=== PATIENT | female | born 1980 | race Caucasian/White ===

== ENCOUNTER → 2019-09-03 11:08 | Outpatient (CLI) | payer BC, SELFPAY ==
--- NOTE | 2019-09-03 11:16 | XR_ITS ---
PROCEDURE: XR KNEE RT 4V CLINICAL INDICATION: knee pain COMPARISON: [id number] KNEE-3 VIEWS-RT from 09/01/2013 FINDINGS: No fracture or dislocation. No lytic or blastic change. There is normal mineralization. The joint spaces are well-preserved. No significant degenerative/arthritic changes. No erosive changes evident. Other findings:None. IMPRESSION: Negative right knee Dictated by: Tien Young MD 09/03/2019 13:51 Electronically signed by Tien Young MD in [place] 09/03/2019 13:51
[2019-09-03 12:01] LABS: Basophils # 0.1 K/mm3 (0-0.2); Basophils % 0.5 % (0.1-2.0); Eosinophils # 0.5 K/mm3 (0.0-0.4); Eosinophils % 4.5 % (0.1-12.0); Hematocrit 39.8 % (37.0-47.0); Lymphocytes # 3.4 K/mm3 (0.7-4.5); Mean Corpuscular HGB Conc 35.2 g/dL (31.8-35.4); Mean Corpuscular Hemoglobin 30.7 pg (27.0-31.2); Mean Corpuscular Volume 87.2 fl (81-99); Mean Platelet Volume 8.1 fl (7.4-10.4); Monocytes # 0.5 K/mm3 (0.1-1.0); Monocytes % 4.7 % (1.7-9.3); Neutrophils # 6.5 K/mm3 (1.8-7.8); Neutrophils % 59.3 % (37.0-80.0); Platelet Count 251 K/mm3 (142-424); Red Blood Count 4.56 M/mm3 (4.20-5.40); Red Cell Distribution Width 14.6 % (11.5-17.5)
[2019-09-03 12:49] LABS: Erythrocyte Sedimentation Rate 24 mm/hr (0-20)
[2019-09-03 13:01] LABS: Alanine Aminotransferase 37 U/L (12-78); Albumin Level 4.5 g/dl (3.5-5.0); Albumin/Globulin Ratio 1.6 (1.1-1.8); Alkaline Phosphatase 76 U/L (38-126); Anion Gap 14.2 mEq/L (5-15); Aspartate Amino Transferase 38 U/L (14-36); Bilirubin,Total 0.3 mg/dl (0.2-1.3); Blood Urea Nitrogen 10 mg/dl (7-17); Calcium 9.5 mg/dl (8.4-10.2); Carbon Dioxide 28 mmol/L (22.0-30.0); Chloride 102 mmol/L (98-107); Estimated Glomerular Filt Rate 94 ml/min (>60); GFR (African American) 114 ML/MIN (>60); Globulin 2.9 g/dL (1.3-3.2); Glucose 116 mg/dl (74-100); Potassium 4.2 mmoL/L (3.5-5.1); Sodium 140 mmol/L (136-145); Total Protein,Serum 7.4 g/dl (6.3-8.2)
[2019-09-03 13:09] LABS: C-Reactive Protein 6.7 mg/L (0-4)
[2019-09-04 12:13] LABS: Anti-Centromere B Antibodies <0.2 AI (0.0-0.9); Anti-Jo-1 <0.2 AI (0.0-0.9); Anti-Smith Antibody <0.2 AI (0.0-0.9); Antichromatin Antibodies <0.2 AI (0.0-0.9); Antiscleroderma-70 Antibodies <0.2 AI (0.0-0.9); RNP Antibodies 0.2 AI (0.0-0.9); Sjogren's Anti-SS-A <0.2 AI (0.0-0.9); Sjogren's Anti-SS-B <0.2 AI (0.0-0.9)
[2019-09-04 12:36] LABS: Anti-DNA (DS) Ab Qn <1 IU/mL (0-9)
[2019-09-04 15:37] LABS: RA Latex Turbid. <10.0 IU/mL (0.0-13.9)
[2019-09-05 12:10] LABS: PTT-LA 34.6 sec (0.0-51.9); dRVVT 41.7 sec (0.0-47.0)
[2019-09-05 13:24] LABS: Lupus Reflex Interpretation Comment: (.)
[2019-09-06 09:12] LABS: Anti-Cyclic Citrullinated Pept 7 units (0-19)
== END ==
PROVIDERS: PCP Emergency Medicine; Visit Provider Physician Assistant
DX: M25.561 Pain in right knee (principal); M32.9 Systemic lupus erythematosus, unspecified
CPT/HCPCS: 36415; 73564; 80053; 85025; 85613; 85651; 86140; 86200; 86225; 86235; 86431

== ENCOUNTER 2019-10-02 13:02 | Outpatient (RCR) | payer BC, SELFPAY ==
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
== END 2019-10-02 13:05 | disposition home or self-care (01) ==
LOC: PT 13:02
PROVIDERS: Visit Provider Physician Assistant
DX: M54.5 Low back pain (principal); G89.29 Other chronic pain
CPT/HCPCS: 97010; 97014; 97035; 97110; 97163; G0283

== ENCOUNTER → 2019-10-02 14:35 | Outpatient (CLI) | payer BC, SELFPAY ==
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
== END ==
PROVIDERS: PCP Emergency Medicine; Visit Provider Orthopaedic Surgery
DX: M25.561 Pain in right knee (principal)
CPT/HCPCS: 73721

== ENCOUNTER 2019-10-06 18:17 | Emergency (ER) | payer BC, SELFPAY ==
[2019-10-06 18:25] VITALS: BP 124/95; PULSE 89; RESP 16; TEMP 36.7; O2SAT 98; BMI 29.2
[2019-10-06 18:30] VITALS: BP 117/87; PULSE 98; RESP 18; O2SAT 98
[2019-10-06 19:00] VITALS: BP 121/76; PULSE 68; RESP 17; O2SAT 99
--- NOTE | 2019-10-06 19:07 | XR_ITS ---
PROCEDURE: XR CHEST PORTABLE CLINICAL HISTORY: cough Cough, wheezing, congestion COMPARISON: CXR CHEST(2 VIEWS-NOT PORTABLE) from 11/23/2012 FINDINGS: The cardiomediastinal silhouette and pulmonary vascularity are within normal limits. The lungs are clear without infiltrates, suspicious nodules, or pleural effusions. No acute bony abnormalities. IMPRESSION: No acute findings. Dictated by: Tien Young MD 10/07/2019 07:07 Electronically signed by Tien Young MD in [place] 10/07/2019 07:07
--- NOTE | 2019-10-06 19:14 | HMH.EDGENADL ---
ED Disposition Condition on Discharge: Fair - Critical Care Critical Care Time: No <Jama Gonzales - Last Filed: 10/06/19 20:29> <Jose Benedict - Last Filed: 10/06/19 22:14> Clinical Impression: Tobacco use Pneumonia Qualifiers: Pneumonia type: due to unspecified organism Laterality: unspecified laterality Lung location: unspecified part of lung Qualified Code(s): J18.9 - Pneumonia, unspecified organism Disposition: Home, Self-Care Instructions: DI for Acute Bronchitis Additional Instructions: fluids and see pcp for follow up Prescriptions: levoFLOXacin [Levaquin 500mg tab] 500 mg PO DAILY #7 tab Prescription Printed predniSONE [Prednisone 20mg Tab] 20 mg PO BID #10 tab Prescription Printed Referrals: Jose Benedict MD [Primary Care Provider] - Attestation: On 10/06/19, the high probability of a clinically significant, sudden or life threatening deterioration of the following system(s) required my full and direct attention, intervention and personal management. The time I documented below is in addition to time spent performing reported procedures but includes the following listed in this critical care notation. Medical Decision Making - Jason Inquiry Pt receiving controlled substance: No - Lab Data Result diagrams: 10/06/19 19:45 10/06/19 19:45 - Radiology Data #1 Image(s): Chest Image Reviewed: Yes I reviewed the patient's radiology image <Jama Gonzales - Last Filed: 10/06/19 20:29> - Medical Records Medical records reviewed: Yes: I reviewed the patient's medical records. - Lab Data Lab results reviewed: Yes: I reviewed the patient's lab results. Result diagrams: 10/06/19 19:45 10/06/19 19:45 <Jose Benedict - Last Filed: 10/06/19 22:14> Vital Signs: 10/06/19 18:25 10/06/19 18:30 10/06/19 19:00 Temperature 98.0 F Temperature Source Oral Pulse Rate [Right Brachial] 89 98 H 68 Respiratory Rate 16 18 17 Blood Pressure [Right Arm] 124/95 H 117/87 121/76 Blood Pressure Mean [Right Arm] 104 97 91 Blood Pressure Source [Right Arm] Automatic Cuff Automatic Cuff Automatic Cuff Blood Pressure Position [Right Arm] Sitting Supine Supine 02 Sat by Pulse Oximetry 98 98 99 Oxygen Delivery Method Room Air Room Air Room Air Oxygen Flow Rate (LPM) 10/06/19 19:30 Temperature Temperature Source Pulse Rate [Right Brachial] 52 L Respiratory Rate 17 Blood Pressure [Right Arm] 115/73 Blood Pressure Mean [Right Arm] 87 Blood Pressure Source [Right Arm] Automatic Cuff Blood Pressure Position [Right Arm] Supine 02 Sat by Pulse Oximetry 98 Oxygen Delivery Method Nasal Cannula Oxygen Flow Rate (LPM) 2 - Lab Data Lab Results 10/06/19 18:55: Influenza Type A Ag Negative, Influenza Type B Ag Negative 10/06/19 18:55: Chlamy pneumoniae PCR Not detected, Adenovirus (PCR) Not detected, B. pertussis DNA (PCR) Not detected, Coronavirus OC43 (PCR) Not detected, Coronavirus HKU1 (PCR) Not detected, Coronavirus 229E (PCR) Not detected, COVID-19 PCR Not detected, Coronavirus NL63 (PCR) Not detected, Human Metapneumovir PCR Not detected, Influenza A (H1) PCR Not detected, Influ A (H1N1/09) PCR Not detected, Influenza A (H3) PCR Not detected, Influenza Type A (PCR) Not detected, Influenza Type B (PCR) Not detected, M. pneumoniae (PCR) Not detected, Parainfluenza 1 (PCR) Not detected, Parainfluenza 2 (PCR) Not detected, Parainfluenza 3 (PCR) Not detected, Parainfluenza 4 (PCR) Not detected, RSV (PCR) Not detected, Entero/Rhino (PCR) Not detected 10/06/19 19:30: Group A Strep Rapid Negative 10/06/19 19:45: WBC 9.0, RBC 4.56, Hgb 14.2, Hct 40.2, MCV 88.1, MCH 31.2, MCHC 35.4, RDW 14.0, Plt Count 270, MPV 9.1, Neut % (Auto) 50.4, Lymph % (Auto) 42.0, [place] % (Auto) 4.7, Eos % (Auto) 2.3, Baso % (Auto) 0.5, Neut # (Auto) 4.5, Lymph # (Auto) 3.8, [place] # (Auto) 0.4, Eos # (Auto) 0.2, Baso # (Auto) 0.1 10/06/19 19:45: Sodium 143, Potassium 3.8, Chloride 106, Carbon Dioxide 26, Ani
[2019-10-06 19:30] VITALS: BP 115/73; PULSE 52; RESP 17; O2SAT 98
[2019-10-06 19:43] LABS: Adenovirus,PCR Not Detected (NotDetected); Bordetella Pertussis Not Detected (NotDetected); Chlamydophila Pneumoniae, PCR Not Detected (NotDetected); Coronavirus 19, PCR Not Detected (NotDetected); Coronavirus 229E Not Detected (NotDetected); Coronavirus NL63 Not Detected (NotDetected); Coronavirus OC43 Not Detected (NotDetected); Coronovirus HKU1,PCR Not Detected (NotDetected); Human Metapneumovirus Not Detected (NotDetected); Influenza A, PCR Not Detected (NotDetected); Influenza AH1, 2009 Not Detected (NotDetected); Influenza AH1, PCR Not Detected (NotDetected); Influenza AH3,PCR Not Detected (NotDetected); Influenza B, PCR Not Detected (NotDetected); Mycoplasma Pneumoniae, PCR Not Detected (NotDected); Parainfluenza 1, PCR Not Detected (NotDetected); Parainfluenza 2, PCR Not Detected (NotDetected); Parainfluenza 3, PCR Not Detected (NotDetected); Parainfluenza 4, PCR Not Detected (NotDetected); Respiratory Syncytial Virus Not Detected (NotDetected); Rhinovirus/Enterovirus Not Detected (NotDetected)
[2019-10-06 20:07] LABS: Basophils # 0.1 K/mm3 (0-0.2); Basophils % 0.5 % (0.1-2.0); Eosinophils # 0.2 K/mm3 (0.0-0.4); Eosinophils % 2.3 % (0.1-12.0); Hematocrit 40.2 % (37.0-47.0); Hemoglobin 14.2 g/dL (12.2-16.2); Lymphocytes # 3.8 K/mm3 (0.7-4.5); Mean Corpuscular HGB Conc 35.4 g/dL (31.8-35.4); Mean Corpuscular Hemoglobin 31.2 pg (27.0-31.2); Mean Corpuscular Volume 88.1 fl (81-99); Mean Platelet Volume 9.1 fl (7.4-10.4); Monocytes # 0.4 K/mm3 (0.1-1.0); Monocytes % 4.7 % (1.7-9.3); Neutrophils # 4.5 K/mm3 (1.8-7.8); Neutrophils % 50.4 % (37.0-80.0); Platelet Count 270 K/mm3 (142-424); Red Blood Count 4.56 M/mm3 (4.20-5.40)
[2019-10-06 20:13] LABS: Alanine Aminotransferase 22 U/L (12-78); Albumin Level 4.3 g/dl (3.5-5.0); Albumin/Globulin Ratio 1.4 (1.1-1.8); Alkaline Phosphatase 93 U/L (38-126); Anion Gap 14.8 mEq/L (5-15); Aspartate Amino Transferase 37 U/L (14-36); Bilirubin,Total 0.4 mg/dl (0.2-1.3); Blood Urea Nitrogen 7 mg/dl (7-17); Calcium 9.6 mg/dl (8.4-10.2); Carbon Dioxide 26 mmol/L (22.0-30.0); Chloride 106 mmol/L (98-107); Creatinine Clearance Estimated 147 mL/min (50-200); Estimated Glomerular Filt Rate 112 ml/min (>60); GFR (African American) 136 ML/MIN (>60); Globulin 3.1 g/dL (1.3-3.2); Glucose 90 mg/dl (74-100); Potassium 3.8 mmoL/L (3.5-5.1); Sodium 143 mmol/L (136-145); Total Protein,Serum 7.4 g/dl (6.3-8.2)
[2019-10-06 20:14] LABS: Lactic Acid 0.6 mmol/L (0.7-2.1)
[2019-10-06 20:16] LABS: Strep Scrn Group A (Rapid) Negative (Negative)
[2019-10-06 22:23] VITALS: BP 118/79; PULSE 66; RESP 14; TEMP 36.7; O2SAT 98
== END 2019-10-06 22:36 | disposition home or self-care (01) ==
PROVIDERS: Emergency Provider Emergency Medicine; PCP Emergency Medicine
DX: J18.9 Pneumonia, unspecified organism (principal); J44.9 Chronic obstructive pulmonary disease, unspecified; G43.709 Chronic migraine without aura, not intractable, without status migrainosus; F17.210 Nicotine dependence, cigarettes, uncomplicated
CPT/HCPCS: 71045; 80053; 83605; 85025; 87040; 87275; 87276; 87430; 87581; 87633; 87798; 96365; 96375; 99284; J1956

== ENCOUNTER → 2019-10-08 13:45 | Outpatient (CLI) | payer BC, SELFPAY ==
[2019-10-08 14:30] LABS: T4 (Thyroxine) 7.7 ug/dl (5.53-11.0)
[2019-10-08 14:44] LABS: Thyroid Stimulating Hormone 3.45 uIU/mL (0.465-4.68)
[2019-10-14 13:52] LABS: 1,25 Dihydroxy Vitamin D 58 pg/mL (.); 1,25-Dihydroxy, Vitamin D-2 <10 pg/mL (.); 1,25-Dihydroxy, Vitamin D-3 58 pg/mL (.)
== END ==
PROVIDERS: Visit Provider Emergency Medicine
DX: R53.83 Other fatigue (principal)
CPT/HCPCS: 82652; 84436; 84443

== ENCOUNTER 2019-11-26 19:45 | Observation (INO) | payer BC, SELFPAY ==
[2019-11-26] VITALS (12 sets, daily range): BP systolic 109–146; BP diastolic 69–109; PULSE 71–115; RESP 15–20; TEMP 36.5; O2SAT 93–99; BMI 28.9; BMI 28.5
--- NOTE | 2019-11-26 19:37 | ECG_ITS ---
APPROVED REPORT Exam: Resting ECG HR:104 bpm ECG Measurements Heart Rate 104 AXES TN 148 P 2 QRSd 66 QRS 1 QT 338 T 3 QTc 444 <Conclusion> Sinus tachycardia Cannot rule out Anterior infarct, age undetermined Abnormal ECG Electronically signed by : Wilberto Shin, 11/30/2019 06:40:36
--- NOTE | 2019-11-26 19:49 | XR_ITS ---
PROCEDURE: XR CHEST 2V CLINICAL HISTORY: chest pain COMPARISON: CR CXR CHEST(2 VIEWS-NOT PORTABLE) from 11/23/2012 CR XR CHEST PORTABLE from 10/06/2019 FINDINGS: The cardiomediastinal silhouette and pulmonary vascularity are within normal limits. The lungs are clear without infiltrates, suspicious nodules, or pleural effusions. No acute bony abnormalities. IMPRESSION: No acute findings. Dictated by: Dr. Antonio Medina MD 11/27/2019 09:00 Dr. Antonio Medina MD in [place] 11/27/2019 09:00
[2019-11-26 19:56] LABS: Chloride 106 mmol/L (98-107); Potassium 3.9 mmoL/L (3.5-5.1); Sodium 140 mmol/L (136-145)
[2019-11-26 19:58] LABS: Basophils # 0.1 K/mm3 (0-0.2); Basophils % 0.7 % (0.1-2.0); Eosinophils # 0.3 K/mm3 (0.0-0.4); Eosinophils % 3.2 % (0.1-12.0); Hematocrit 40.1 % (37.0-47.0); Hemoglobin 14.5 g/dL (12.2-16.2); Lymphocytes # 4.2 K/mm3 (0.7-4.5); Lymphocytes % 38.6 % (10-50); Mean Corpuscular HGB Conc 36.1 g/dL (31.8-35.4); Mean Corpuscular Hemoglobin 31.5 pg (27.0-31.2); Mean Corpuscular Volume 87.2 fl (81-99); Mean Platelet Volume 8.7 fl (7.4-10.4); Monocytes # 0.6 K/mm3 (0.1-1.0); Monocytes % 5.2 % (1.7-9.3); Neutrophils # 5.6 K/mm3 (1.8-7.8); Neutrophils % 52.3 % (37.0-80.0); Platelet Count 247 K/mm3 (142-424); White Blood Count 10.8 K/mm3 (4.8-10.8)
[2019-11-26 19:59] LABS: Anion Gap 13.9 mEq/L (5-15); Blood Urea Nitrogen 9 mg/dl (7-17); Calcium 9.7 mg/dl (8.4-10.2); Carbon Dioxide 24 mmol/L (22.0-30.0); Creatinine Clearance Estimated 145 mL/min (50-200); Estimated Glomerular Filt Rate 112 ml/min (>60); GFR (African American) 136 ML/MIN (>60); Glucose 115 mg/dl (74-100)
--- NOTE | 2019-11-26 20:05 | HMH.EDGENADL ---
ED Disposition Clinical Impression: Atypical chest pain, Family history of cardiomyopathy, History of cardiomyopathy, Tobacco use disorder Disposition: Admitted as Observation Condition on Discharge: Fair Referrals: Jose Benedict MD [Primary Care Provider] - Time of Disposition: 22:54 - Critical Care Critical Care Time: No Attestation: On 11/26/19, the high probability of a clinically significant, sudden or life threatening deterioration of the following system(s) required my full and direct attention, intervention and personal management. The time I documented below is in addition to time spent performing reported procedures but includes the following listed in this critical care notation. Medical Decision Making - Medical Records Medical records reviewed: Yes: I reviewed the patient's medical records. - Jason Inquiry Pt receiving controlled substance: No Vital Signs: 11/26/19 19:45 11/26/19 19:54 11/26/19 20:03 Temperature 97.7 F Temperature Source Oral Pulse Rate 115 H Pulse Rate [Right Brachial] 108 H 96 H Respiratory Rate 20 18 Blood Pressure [Right Arm] 146/109 H 126/90 Blood Pressure Mean [Right Arm] 121 102 Blood Pressure Source [Right Arm] Automatic Cuff Automatic Cuff Blood Pressure Position [Right Arm] Sitting Sitting 02 Sat by Pulse Oximetry 96 97 Oxygen Delivery Method Room Air Room Air Oxygen Flow Rate (LPM) 11/26/19 20:22 11/26/19 20:28 11/26/19 21:00 Temperature Temperature Source Pulse Rate Pulse Rate [Right Brachial] 98 H 92 H 98 H Respiratory Rate 18 18 Blood Pressure [Right Arm] 128/97 H 124/75 121/97 H Blood Pressure Mean [Right Arm] 107 91 105 Blood Pressure Source [Right Arm] Automatic Cuff Blood Pressure Position [Right Arm] Sitting 02 Sat by Pulse Oximetry 93 L 95 97 Oxygen Delivery Method Room Air Nasal Cannula Oxygen Flow Rate (LPM) 2 11/26/19 21:30 11/26/19 21:59 Temperature Temperature Source Pulse Rate Pulse Rate [Right Brachial] 84 83 Respiratory Rate 16 Blood Pressure [Right Arm] 120/69 116/82 Blood Pressure Mean [Right Arm] 86 93 Blood Pressure Source [Right Arm] Blood Pressure Position [Right Arm] 02 Sat by Pulse Oximetry 98 94 L Oxygen Delivery Method Room Air Nasal Cannula Oxygen Flow Rate (LPM) 2 - Lab Data Lab Results 11/26/19 19:40: WBC 10.8, RBC 4.60, Hgb 14.5, Hct 40.1, MCV 87.2, MCH 31.5 H, MCHC 36.1 H, RDW 14.0, Plt Count 247, MPV 8.7, Neut % (Auto) 52.3, Lymph % (Auto) 38.6, Hand % (Auto) 5.2, Eos % (Auto) 3.2, Baso % (Auto) 0.7, Neut # (Auto) 5.6, Lymph # (Auto) 4.2, Hand # (Auto) 0.6, Eos # (Auto) 0.3, Baso # (Auto) 0.1 11/26/19 19:40: Sodium 140, Potassium 3.9, Chloride 106, Carbon Dioxide 24, Anion Gap 13.9, BUN 9, Creatinine 0.60, Estimated Creat Clear 145, Estimated GFR 112, Est GFR ( Amer) 136, Glucose 115 H, Calcium 9.7, Troponin I < 0.01 11/26/19 19:40: D-Dimer 0.65 11/26/19 19:40: SARS-CoV-2 IgG Ab (Rapid) Negative, SARS-CoV-2 IgM Ab (Rapid) Negative 11/26/19 21:54: Troponin I < 0.01 Result diagrams: 11/26/19 19:40 11/26/19 19:40 Orders (Tests/Meds): ED MEDICATIONS Discontinued Medications Generic Name Dose Route Start Last Admin Trade Name Jigar PRN Reason Stop Dose Admin Aspirin 324 mg 11/26/19 19:50 11/26/19 20:03 Aspirin 81mg Chewable Tablet PO 11/26/19 19:51 324 mg ONCE ONE Administration Ioversol 70 ml 11/26/19 21:58 11/26/19 22:02 Rad-Optiray 350 100ml Vial IV 11/26/19 21:59 70 ml ONCE ONE Administration Protocol Ketorolac Tromethamine 15 mg 11/26/19 22:20 11/26/19 22:23 Toradol 30mg/Ml Vial IV 11/26/19 22:21 15 mg ONCE ONE Administration Nitroglycerin 0.4 mg 11/26/19 20:19 11/26/19 20:23 Nitrostat 0.4mg Sl Tablet SL 11/26/19 20:20 1 tab ONCE ONE Administration Sodium Chloride 40 ml 11/26/19 21:58 11/26/19 22:00 Rad-Ns 50ml Vial IV 11/26/19 21:59 40 ml ONCE ONE Administration Sodium Chlor
[2019-11-26 20:11] LABS: Troponin I < 0.01 ng/ml (0.00-0.034)
--- NOTE | 2019-11-26 20:23 | PC.NURSE ---
patient rang out stating she was having what felt like palpitations and stated she felt her heart skip, and the pain came back. pt also still c/o significant left shoulder blade pain, md notified, order for sublingual nitro given. pt given nitro at 2022
[2019-11-26 21:01] LABS: D-Dimer 0.65 ug/mL (0.15-8.0)
--- NOTE | 2019-11-26 21:11 | CT_ITS ---
PROCEDURE: CT ANGIO CHEST CLINCIAL INDICATION: chest pain, sharp intense Left-sided chest pain, left shoulder pain COMPARISON: No exams were available for comparison TECHNIQUE: IV Contrast: 70ML OPTIRAY 350 Axial images obtained with sagittal and coronal reformats. All CT scans at the facility use one or more dose reduction, viz: automated exposure control, ma/kV adjustment per patient size (including targeted exams where dose is matched to indication, i.e. head), or iterative reconstruction technique. FINDINGS: HEART AND MEDIASTINAL STRUCTURES: No mediastinal or hilar mass or adenopathy. No evidence of aortic aneurysm, aortic dissection, or pulmonary embolus. LUNGS AND PLEURAL SPACES: Small linear parenchymal opacities noted in the superior segment of the right lower lobe laterally may be due to an area of scarring or atelectasis. No lobar consolidation or collapse is evident. There are areas of mosaic attenuation. There is a small bleb in the right apex medially. There is mild bronchial thickening. There is a 5 mm noncalcified nodule along the right minor fissure anteriorly image 53 series 3 BONY STRUCTURES: No acute bony abnormalities apparent. UPPER ABDOMEN: Diffuse fatty liver infiltration ADDITIONAL FINDINGS: Bilateral submammary breast implants. There are scattered small bilateral axillary nodes. IMPRESSION: 1. No evidence of acute pulmonary embolus. 2. Mosaic attenuation of the lungs which may be seen with small airway disease. There is some mild bronchial thickening. COPD or asthma is a consideration. 3. 5 mm right upper lobe nodule nonspecific along the minor fissure and may be due to small node. Minimal atelectatic or fibrotic change in the right lower lobe. Dictated by: Tien Young MD 11/27/2019 06:51 Tien Young MD in [place] 11/27/2019 06:51
--- NOTE | 2019-11-26 21:12 | PC.NURSE ---
patient complaining again of palipations and chest pain. md notified, at bedside, md wants a repeat ekg and stated she wanted to order a CTA. pt updated on plan of care. md also stated to draw repeat troponin at the 2 hour eli.
[2019-11-26 21:14] LABS: Coronavirus 19 IgG Antibody Negative (Negative)
[2019-11-26 21:15] LABS: Coronavirus 19 IgM Antibody Negative (Negative)
--- NOTE | 2019-11-26 21:24 | PC.NURSE ---
notified radiology that md ordered at CTA
--- NOTE | 2019-11-26 21:35 | PC.NURSE ---
patient to ct at this time. reports she still has significant pain in her left shoulder, notified . states that she will give her something for pain after her CTA.
--- NOTE | 2019-11-26 21:45 | ECG_ITS ---
APPROVED REPORT Exam: Resting ECG HR:89 bpm ECG Measurements Heart Rate 89 AXES ND 160 P -2 QRSd 70 QRS 2 QT 384 T 16 QTc 467 <Conclusion> Normal sinus rhythm Normal ECG Electronically signed by : Wilberto Shin, 11/30/2019 06:40:23
--- NOTE | 2019-11-26 21:48 | PC.NURSE ---
patient back from radiology
--- NOTE | 2019-11-26 21:55 | PC.NURSE ---
2nd Troponin sent to lab, lab notified at this time.
[2019-11-26 22:26] LABS: Troponin I < 0.01 ng/ml (0.00-0.034)
--- NOTE | 2019-11-26 23:35 | PC.NURSE ---
3rd troponin sent to lab, lab notified
--- NOTE | 2019-11-26 23:35 | PC.NURSE ---
Dr Gonzalez speaking with Dr Finch at this time
--- NOTE | 2019-11-26 23:35 | PC.NURSE ---
Pt up to bathroom at this time
--- NOTE | 2019-11-26 23:45 | PC.NURSE ---
updated patient on plan of care. pt still c/o pain. md notified. nitropaste ordered.
[2019-11-27] VITALS (7 sets, daily range): BP systolic 105–122; BP diastolic 64–82; PULSE 60–103; RESP 15–18; TEMP 36.6–36.9; O2SAT 97–100; BMI 28.8; BMI 29.7
--- NOTE | 2019-11-27 | PC.NURSE ---
Report given to EVELIA Sanchez
[2019-11-27 00:01] LABS: Troponin I < 0.01 ng/ml (0.00-0.034)
--- NOTE | 2019-11-27 00:18 | PC.NURSE ---
PATIENT UP TO FLOOR VIA WHEELCHAIR.
--- NOTE | 2019-11-27 05:45 | PC.NURSE ---
Pt admitted this shift for chest pain radiating to left shoulder. Given medications as ordered. States pain is 8 on 1-10 scale, then asks when breaskfast is served. Was given several snacks this shift and also visited vending machine for better snacks. States she would like to speak with social work manager this am.
[2019-11-27 07:11] LABS: Basophils # 0.1 K/mm3 (0-0.2); Basophils % 0.7 % (0.1-2.0); Eosinophils # 0.4 K/mm3 (0.0-0.4); Eosinophils % 4.3 % (0.1-12.0); Hematocrit 37.4 % (37.0-47.0); Hemoglobin 13.2 g/dL (12.2-16.2); Lymphocytes # 4.1 K/mm3 (0.7-4.5); Lymphocytes % 48.1 % (10-50); Mean Corpuscular HGB Conc 35.2 g/dL (31.8-35.4); Mean Corpuscular Hemoglobin 31.8 pg (27.0-31.2); Mean Corpuscular Volume 90.3 fl (81-99); Mean Platelet Volume 8.7 fl (7.4-10.4); Monocytes # 0.5 K/mm3 (0.1-1.0); Monocytes % 5.2 % (1.7-9.3); Neutrophils # 3.6 K/mm3 (1.8-7.8); Neutrophils % 41.7 % (37.0-80.0); Platelet Count 234 K/mm3 (142-424); Red Blood Count 4.14 M/mm3 (4.20-5.40); White Blood Count 8.6 K/mm3 (4.8-10.8)
[2019-11-27 07:23] LABS: Chloride 106 mmol/L (98-107); Potassium 3.8 mmoL/L (3.5-5.1); Sodium 140 mmol/L (136-145)
[2019-11-27 07:26] LABS: Anion Gap 10.8 mEq/L (5-15); Blood Urea Nitrogen 7 mg/dl (7-17); Carbon Dioxide 27 mmol/L (22.0-30.0); Creatinine Clearance Estimated 127 mL/min (50-200); Estimated Glomerular Filt Rate 94 ml/min (>60); GFR (African American) 114 ML/MIN (>60); Phosphorous 5.5 mg/dl (2.5-4.5)
[2019-11-27 07:27] LABS: Calcium 8.9 mg/dl (8.4-10.2); Glucose 137 mg/dl (74-100)
--- NOTE | 2019-11-27 07:54 | HMH.PHAVTE ---
[facility] Pharmacy VTE Monitoring - Patient Demographics Admission date: 11/27/19 Report Date: 11/27/19 Time: 07:54 Allergies/Adverse Reactions: Patient Allergies cephalexin [From Keflex] Allergy (Severe, Verified 11/26/19 20:33) Anaphylaxis Height: 1.57 m Weight: 73.142 kg Patient Problems: Current Active Problems Atypical chest pain (Acute) Family history of cardiomyopathy (Acute) History of cardiomyopathy (Acute) Tobacco use disorder (Acute) - VTE Risk Labs: VTE Related Lab Results Hgb 13.2 g/dL (12.2-16.2) 11/27/19 06:40 Hct 37.4 % (37.0-47.0) 11/27/19 06:40 Plt Count 234 K/mm3 (142-424) 11/27/19 06:40 BUN 7 mg/dl (7-17) 11/27/19 06:40 Creatinine 0.70 mg/dl (0.52-1.04) 11/27/19 06:40 Estimated Creat Clear 127 mL/min (50-200) 11/27/19 06:40 Was VTE Risk Assessment Performed: Yes VTE Score: 5 VTE Risk Level: Low Risk Clinical Trial Participant: No - Prophylaxis VTE Prophylaxis Ordered?: Yes Types of VTE Prophylaxis: TEDS Knee High
--- NOTE | 2019-11-27 07:59 | HMH.PHAINT ---
HOME MEDICATION RECONCILIATION COMPLETED USING LIST FROM CLINIC PHARMACY AND PT INTERVIEW
--- NOTE | 2019-11-27 08:14 | HMH.HP ---
*Admission Date: 11/27/19 [facility] [place] History Medical History: Reports:: Anxiety, Cancer (colon), Chronic Obstructive Pulmonary Disease (COPD), Hypertension, Migraine, Seizures, Valvular Heart Disease (mitral valve prolapse) Denies:: Diabetes Mellitus Type 1, Diabetes Mellitus Type 2 *Have you ever received a pneumonia vaccine?: No *Have you received a flu vaccine this season?: No Other Medical History: Reports: Other (Lupus,Chrons) Laterality Cases: Right: Arthroscopy Knee, Bilateral: Other Other Surgeries: Yes: Colonoscopy, , Dilation and Curettage, Tubal Ligation, Other (breast augmentation) Amputation: No Fractures: Yes (RT shoulder,RT wrist and hand,fingers,ribs) - *Social History Last grade of school completed: High school graduate Smoking Status: Current every day smoker Tobacco Type: cigarettes # Packs/Day (cigarettes): 1 Alcohol Intake: never Substance Use Type: marijuana Last Used Substance: unknown *Occupational Status:: disabled Housing: apartment Household Members: family *Travel in the last 8 weeks: None - Psychiatric History Pschychiatric History:: Reports:: Anxiety Family Hx:: Cancer, Heart Attack, Hypertension, Kidney Disease, Mental illness Review of Systems - *Neurologic Denies dizziness, Denies headache(s), Denies numbness Meds Home Medications Medication Instructions Recorded Confirmed Type clonazepam 1 mg tablet 1 mg PO TID #90 tab 10/08/19 11/26/19 Rx oxycodone-acetaminophen 7.5 mg-325 1 tab PO TID #90 tab 10/08/19 11/26/19 Rx mg tablet clonidine HCl 0.2 mg tablet 0.2 mg PO BID 90 Days #180 tab 11/05/19 11/26/19 Rx spironolactone 25 mg tablet 25 mg PO DAILY #90 tab 11/05/19 11/26/19 Rx ARIPiprazole [Aripiprazole] 5 mg PO HS 11/26/19 11/27/19 History Gabapentin 600 mg PO TID 11/26/19 11/26/19 History Minocycline HCl [Minocycline HCl 100 mg PO DAILY 11/26/19 11/26/19 History 100mg Tab*] Prazosin HCl [Minipress] 2 mg PO HS 11/26/19 11/27/19 History Mirtazapine [Remeron] 15 mg PO HS PRN 11/27/19 11/27/19 History Allergies Allergy/AdvReac Type Severity Reaction Status Date / Time cephalexin [From Keflex] Allergy Severe Anaphylaxis Verified 11/26/19 20:33 Exam Vital signs and Labs for Last 24 Hours: Temp Pulse Resp BP Pulse Ox 98 F 87 18 111/67 100 11/27/19 08:00 11/27/19 08:00 11/27/19 08:00 11/27/19 08:00 11/27/19 08:00 Laboratory Results - last 24 hr 11/26/19 19:40: WBC 10.8, RBC 4.60, Hgb 14.5, Hct 40.1, MCV 87.2, MCH 31.5 H, MCHC 36.1 H, RDW 14.0, Plt Count 247, MPV 8.7, Neut % (Auto) 52.3, Lymph % (Auto) 38.6, [place] % (Auto) 5.2, Eos % (Auto) 3.2, Baso % (Auto) 0.7, Neut # (Auto) 5.6, Lymph # (Auto) 4.2, [place] # (Auto) 0.6, Eos # (Auto) 0.3, Baso # (Auto) 0.1 11/26/19 19:40: Sodium 140, Potassium 3.9, Chloride 106, Carbon Dioxide 24, Anion Gap 13.9, BUN 9, Creatinine 0.60, Estimated Creat Clear 145, Estimated GFR 112, Est GFR ( Amer) 136, Glucose 115 H, Calcium 9.7, Troponin I < 0.01 11/26/19 19:40: D-Dimer 0.65 11/26/19 19:40: SARS-CoV-2 IgG Ab (Rapid) Negative, SARS-CoV-2 IgM Ab (Rapid) Negative 11/26/19 21:54: Troponin I < 0.01 11/26/19 23:30: Troponin I < 0.01 11/27/19 06:40: WBC 8.6, RBC 4.14 L, Hgb 13.2, Hct 37.4, MCV 90.3, MCH 31.8 H, MCHC 35.2, RDW 14.0, Plt Count 234, MPV 8.7, Neut % (Auto) 41.7, Lymph % (Auto) 48.1, [place] % (Auto) 5.2, Eos % (Auto) 4.3, Baso % (Auto) 0.7, Neut # (Auto) 3.6, Lymph # (Auto) 4.1, [place] # (Auto) 0.5, Eos # (Auto) 0.4, Baso # (Auto) 0.1 11/27/19 06:40: Sodium 140, Potassium 3.8, Chloride 106, Carbon Dioxide 27, Anion Gap 10.8, BUN 7, Creatinine 0.70, Estimated Creat Clear 127, Estimated GFR 94, Est GFR ( Amer) 114, Glucose 137 H, Calcium 8.9, Phosphorus 5.5 H, Magnesium 2.0 I & O for Last 24 hours: Intake & Output 11/24/19 11/25/19 11/26/19 11/27/19 23:59 23:59 23:59 23:59 Intake Total 360 / 360 Balance 360 / 360 Weight 156 lb 6.405 oz 161 lb 4 oz
--- NOTE | 2019-11-27 08:30 | CA_ITS ---
APPROVED REPORT EXAM: Comprehensive 2D, Doppler, and color-flow Echocardiogram Criminal Justice Social Worker: Aleksandra Collier CRT Ht: 5 ft 1 in Wt: 161lbs BSA: 1.72 BP: 111/67 mmHg Indications: Chest Pain, COPD, Hypertension/HDD, smoker, Breast Implants 2D Dimensions LVOT 1.90 cm (M/F) 1.5-2.5 M-Mode Dimensions RVDd 2.09 cm (0.9-2.6) LVDd 4.19 cm (3.5-5.7) LVDs 2.97 cm (3.5-5.7) IVSd 1.95 cm (0.6-1.1) PWd 0.70 cm (0.6-1.1) EF (Teich) 56.20% FS 29.10% EDV (Teich) 78.10 mL ESV (Teich) 34.20 mL LV Diastology E/A Ratio 1.31 Mitral Valve MV A Velocity 65.00 (40-130 cm/s) Left Ventricle Left atrium is normal size, left ventricle is normal size, there is no concentric left ventricular hypertrophy, visually estimated ejection 55% with no regional wall motion abnormality, diastolic parameters are within normal range. Fraction 55% with no regional wall motion abnormality, Right Ventricle Right atrium right ventricular normal size and contractility. Aortic Valve Aortic valve is grossly normal, there is no aortic stenosis or aortic insufficiency. Mitral Valve Mitral valve is grossly normal, there is mild mitral regurgitation. Tricuspid Valve Tricuspid valve is grossly normal, there is mild tricuspid regurgitation, calculated right ventricular systolic pressure within normal range. Pulmonic Valve Pulmonic valve is poorly visualized. Great Vessels Aortic root is normal size. Pericardium No significant pericardial effusion noted. Conclusion 1. Normal left ventricular size, preserved left ventricular systolic function, visually estimated ejection fraction 55% with no regional wall motion abnormality, diastolic parameters are within normal range. 2. Mild mitral and tricuspid regurgitation, calculated right ventricular systolic pressure is within normal range. 3. No significant pericardial effusion noted. Electronically signed by : Alan Jacobs, 11/27/2019 21:04:41
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
--- NOTE | 2019-11-27 15:03 | PC.NURSE ---
Pt d/cd from floor at 1452.
--- NOTE | 2019-11-27 17:52 | HMH.HPDC ---
General - General Admission date:: 11/27/19 Discharge date: 11/27/19 *Admission Date: 11/27/19 *Chief complaint: Chest Pain *History of present illness: 39-year-old female patient presents to the emergency room with reports of left scapular pain, she describes as an ice pick to her back with radiation through to her chest. She reports this started at home she took 1 nitroglycerin with what she believed was some relief of symptoms but did not completely alleviate all of them. She reports she does have a history of mitral valve prolapse which was diagnosed when she was , she delivered and she was never followed up with cardiology afterwards due to moving to [place] and child was premature complications. She also reports she has a strong family history of CAD and was worried and came to the ED for further evaluation. In the ER there were no ST changes in her EKG, troponins were negative x3, CTA of the chest was negative for pulmonary embolism. CBC and BMP were unremarkable as well. Chest x-ray showed no acute findings. While in the emergency room patient reported decreased chest/back pain and was transported to floor. [facility] History Medical History: Reports:: Anxiety, Cancer (colon), Chronic Obstructive Pulmonary Disease (COPD), Hypertension, Migraine, Seizures, Valvular Heart Disease (mitral valve prolapse) Denies:: Diabetes Mellitus Type 1, Diabetes Mellitus Type 2 *Have you ever received a pneumonia vaccine?: No *Have you received a flu vaccine this season?: No Other Medical History: Reports: Other (Lupus,Chrons) Laterality Cases: Right: Arthroscopy Knee, Bilateral: Other Other Surgeries: Yes: Colonoscopy, , Dilation and Curettage, Tubal Ligation, Other (breast augmentation) Amputation: No Fractures: Yes (RT shoulder,RT wrist and hand,fingers,ribs) - *Social History Last grade of school completed: High school graduate Smoking Status: Current every day smoker Tobacco Type: cigarettes # Packs/Day (cigarettes): 1 Alcohol Intake: never Substance Use Type: marijuana Last Used Substance: unknown *Occupational Status:: disabled Housing: apartment Household Members: family *Travel in the last 8 weeks: None - Psychiatric History Pschychiatric History:: Reports:: Anxiety Family Hx:: Cancer, Heart Attack, Hypertension, Kidney Disease, Mental illness Review of Systems - Review of Systems Review of systems:: pertinent systems reviewed and negative unless documented below - Constitutional Reports fatigue, Reports lack of energy, Denies fever(s) - Eyes Denies change in vision, Denies double vision - ENT Denies dizziness, Denies difficulty swallowing - *Cardiovascular Reports chest pain, Reports chest pain at rest, Reports shortness of breath, Reports fast heart rate, Denies excessive sweating - *Respiratory Reports shortness of breath, Denies excessive phlegm production - *Gastrointestinal Denies abdominal pain, Denies change in bowel habits, Denies difficulty swallowing - *Musculoskeletal Denies joint pain, Denies neck pain - Integumentary/Breasts Denies hair loss, Denies change in skin color - *Neurologic Denies dizziness, Denies headache(s), Denies numbness - Psychiatric Denies behavioral changes, Denies hopelessness - Endocrine Denies cold intolerance, Denies heat intolerance - Hematologic/Lymphatic Denies easy bleeding, Denies easy bruising - Allergic/Immunologic Denies GI upset with certain foods, Denies tongue swelling Exam Vital signs and Labs for Last 24 Hours: Temp Pulse Resp BP Pulse Ox 98.5 F 90 17 107/73 L 100 11/27/19 11:25 11/27/19 12:00 11/27/19 11:25 11/27/19 11:25 11/27/19 11:25 Laboratory Results - last 24 hr 11/26/19 19:40: WBC 10.8, RBC 4.60, Hgb 14.5, Hct 40.1, MCV 87.2, MCH 31.5 H, MCHC 36.1 H, RDW 14.0, Plt Count 247, MPV 8.7, Neut % (Auto) 52.3, Lymph % (Auto) 38.6, Saline % (Auto) 5.2, Eos % (Auto) 3.2, Baso % (Auto) 0.7, Neut # (
== END 2019-11-27 14:50 | disposition home or self-care (01) ==
LOC: ER 22:54 → 2ND 11-27 00:48
PROVIDERS: Emergency Medicine; Admitting Provider Family Medicine; Emergency Provider Emergency Medicine; PCP Emergency Medicine; Visit Provider Family Medicine
DX: R07.9 Chest pain, unspecified (principal); J44.9 Chronic obstructive pulmonary disease, unspecified; I10 Essential (primary) hypertension; Z72.0 Tobacco use; M54.16 Radiculopathy, lumbar region; G40.909 Epilepsy, unspecified, not intractable, without status epilepticus; Z79.899 Other long term (current) drug therapy; Z88.1 Allergy status to other antibiotic agents
CPT/HCPCS: 36415; 71046; 71275; 80048; 83735; 84100; 84484; 85025; 85378; 86328; 93005; 93306; 96374; 99285; G0378; Q9967

== ENCOUNTER 2019-12-21 19:39 | Emergency (ER) | payer BC, SELFPAY ==
[2019-12-21] VITALS (8 sets, daily range): BP systolic 103–138; BP diastolic 71–96; PULSE 78–119; RESP 16–17; TEMP 36.8–37.4; O2SAT 95–99; BMI 29.2
--- NOTE | 2019-12-21 19:35 | ECG_ITS ---
APPROVED REPORT Exam: Resting ECG HR:111 bpm ECG Measurements Heart Rate 111 AXES WI 142 P 68 QRSd 74 QRS 43 QT 318 T 31 QTc 432 <Conclusion> Sinus tachycardia Otherwise normal ECG Electronically signed by : Wilberto Shin, 12/22/2019 06:23:56
--- NOTE | 2019-12-21 19:47 | XR_ITS ---
PROCEDURE: XR CHEST 2V CLINICAL HISTORY: chest pain COMPARISON: CR CXR CHEST(2 VIEWS-NOT PORTABLE) from 11/23/2012 CR XR CHEST PORTABLE from 10/06/[address] ANGIO CHEST from 11/26/2019 CR XR CHEST 2V from 11/26/2019 FINDINGS: The cardiomediastinal silhouette and pulmonary vascularity are within normal limits. The lungs are clear without infiltrates, suspicious nodules, or pleural effusions. No acute bony abnormalities. Status post bilateral breast implants IMPRESSION: No acute findings. Dictated by: Tien Young MD 12/22/2019 06:07 Tien Young MD in [place] 12/22/2019 06:07
[2019-12-21 19:53] LABS: Basophils # 0.1 K/mm3 (0-0.2); Basophils % 0.7 % (0.1-2.0); Eosinophils # 0.4 K/mm3 (0.0-0.4); Hematocrit 39.9 % (37.0-47.0); Hemoglobin 14.2 g/dL (12.2-16.2); Lymphocytes % 32.9 % (10-50); Mean Corpuscular HGB Conc 35.7 g/dL (31.8-35.4); Mean Corpuscular Hemoglobin 32.1 pg (27.0-31.2); Mean Corpuscular Volume 89.9 fl (81-99); Mean Platelet Volume 8.8 fl (7.4-10.4); Monocytes # 0.7 K/mm3 (0.1-1.0); Monocytes % 5.9 % (1.7-9.3); Neutrophils # 6.9 K/mm3 (1.8-7.8); Neutrophils % 57.5 % (37.0-80.0); Platelet Count 269 K/mm3 (142-424); Red Blood Count 4.43 M/mm3 (4.20-5.40); Red Cell Distribution Width 13.7 % (11.5-17.5); White Blood Count 12.1 K/mm3 (4.8-10.8)
[2019-12-21 19:58] LABS: Anion Gap 13.1 mEq/L (5-15); Blood Urea Nitrogen 11 mg/dl (7-17); Calcium 9.6 mg/dl (8.4-10.2); Carbon Dioxide 25 mmol/L (22.0-30.0); Chloride 104 mmol/L (98-107); Creatinine Clearance Estimated 147 mL/min (50-200); Estimated Glomerular Filt Rate 112 ml/min (>60); GFR (African American) 136 ML/MIN (>60); Glucose 117 mg/dl (74-100); Potassium 4.1 mmoL/L (3.5-5.1); Sodium 138 mmol/L (136-145)
--- NOTE | 2019-12-21 20:01 | PC.NURSE ---
PT gone to xray
--- NOTE | 2019-12-21 20:02 | PC.NURSE ---
Patient to radiology at this time
--- NOTE | 2019-12-21 20:04 | PC.NURSE ---
patient back from radiology at this time
--- NOTE | 2019-12-21 20:06 | HMH.EDGENADL ---
ED Disposition Clinical Impression: Chest pain Qualifiers: Chest pain type: unspecified Qualified Code(s): R07.9 - Chest pain, unspecified Disposition: Home, Self-Care Condition on Discharge: Good Instructions: DI for Chest Pain Referrals: Jose Benedict MD [Primary Care Provider] - - Critical Care Critical Care Time: No Attestation: On 12/21/19, the high probability of a clinically significant, sudden or life threatening deterioration of the following system(s) required my full and direct attention, intervention and personal management. The time I documented below is in addition to time spent performing reported procedures but includes the following listed in this critical care notation. Medical Decision Making - Medical Records Medical records reviewed: Yes: I reviewed the patient's medical records. - Jason Inquiry Pt receiving controlled substance: No Vital Signs: 12/21/19 19:40 12/21/19 20:00 12/21/19 21:14 Temperature 99.4 F Temperature Source Oral Pulse Rate Pulse Rate [Right] 78 119 H 95 H Respiratory Rate 16 17 16 Blood Pressure Blood Pressure [Right Arm] 128/94 H 124/92 H 138/83 Blood Pressure Mean [Right Arm] 105 102 101 Blood Pressure Source Blood Pressure Source [Right Arm] Automatic Cuff Automatic Cuff Automatic Cuff Blood Pressure Position Blood Pressure Position [Right Arm] Sitting Supine Sitting 02 Sat by Pulse Oximetry 98 96 99 Oxygen Delivery Method Room Air Room Air Room Air 12/21/19 21:32 12/21/19 22:29 12/21/19 22:30 Temperature Temperature Source Pulse Rate Pulse Rate [Right] 96 H 90 87 Respiratory Rate 16 16 17 Blood Pressure Blood Pressure [Right Arm] 111/78 114/96 H 114/96 H Blood Pressure Mean [Right Arm] 89 102 102 Blood Pressure Source Blood Pressure Source [Right Arm] Automatic Cuff Automatic Cuff Blood Pressure Position Blood Pressure Position [Right Arm] Sitting Sitting Supine 02 Sat by Pulse Oximetry 97 98 97 Oxygen Delivery Method Room Air Room Air Room Air 12/21/19 23:00 12/21/19 23:39 12/21/19 23:44 Temperature 98.2 F Temperature Source Oral Pulse Rate 91 H Pulse Rate [Right] 96 H Respiratory Rate 17 Blood Pressure 109/77 L Blood Pressure [Right Arm] 103/71 L Blood Pressure Mean [Right Arm] 81 Blood Pressure Source Automatic Cuff Blood Pressure Source [Right Arm] Blood Pressure Position Sitting Blood Pressure Position [Right Arm] 02 Sat by Pulse Oximetry 95 Oxygen Delivery Method Room Air Room Air - Lab Data Lab Results 12/21/19 19:40: WBC 12.1 H, RBC 4.43, Hgb 14.2, Hct 39.9, MCV 89.9, MCH 32.1 H, MCHC 35.7 H, RDW 13.7, Plt Count 269, MPV 8.8, Neut % (Auto) 57.5, Lymph % (Auto) 32.9, [place] % (Auto) 5.9, Eos % (Auto) 3.0, Baso % (Auto) 0.7, Neut # (Auto) 6.9, Lymph # (Auto) 4.0, [place] # (Auto) 0.7, Eos # (Auto) 0.4, Baso # (Auto) 0.1 12/21/19 19:40: Sodium 138, Potassium 4.1, Chloride 104, Carbon Dioxide 25, Anion Gap 13.1, BUN 11, Creatinine 0.60, Estimated Creat Clear 147, Estimated GFR 112, Est GFR ( Amer) 136, Glucose 117 H, Calcium 9.6, Troponin I < 0.01 12/21/19 19:40: D-Dimer 0.62 12/21/19 22:38: Troponin I < 0.01 Result diagrams: 12/21/19 19:40 12/21/19 19:40 Orders (Tests/Meds): ED MEDICATIONS Discontinued Medications Generic Name Dose Route Start Last Admin Trade Name Jigar PRN Reason Stop Dose Admin Acetaminophen 1,000 mg 12/21/19 21:49 12/21/19 22:16 Tylenol 500mg Tablet PO 12/21/19 21:50 1,000 mg ONCE ONE Administration Clonazepam 1 mg 12/21/19 20:32 12/21/19 20:36 Klonopin 0.5mg Tablet PO 12/21/19 20:33 1 mg ONCE ONE Administration Dexamethasone Sodium Phosphate 10 mg 12/21/19 21:49 12/21/19 22:16 Decadron 4mg/Ml 1ml Vial IV 12/21/19 21:50 10 mg ONCE ONE Administration Diphenhydramine HCl 50 mg 12/21/19 21:49 12/21/19 22:17 Benadryl 50mg/1ml Vial IV 12/21/19 21:50 50 mg ONCE ONE Administration La
[2019-12-21 20:25] LABS: Troponin I < 0.01 ng/ml (0.00-0.034)
[2019-12-21 20:28] LABS: D-Dimer 0.62 ug/mL (0.15-8.0)
[2019-12-21 23:20] LABS: Troponin I < 0.01 ng/ml (0.00-0.034)
--- NOTE | 2019-12-21 23:45 | PC.NURSE ---
patient ready for discharge. states she is waiting on her ride.
== END 2019-12-22 | disposition home or self-care (01) ==
PROVIDERS: Emergency Provider Emergency Medicine; PCP Emergency Medicine
DX: R07.9 Chest pain, unspecified (principal); I34.0 Nonrheumatic mitral (valve) insufficiency; F41.8 Other specified anxiety disorders; G40.909 Epilepsy, unspecified, not intractable, without status epilepticus; J44.9 Chronic obstructive pulmonary disease, unspecified; I10 Essential (primary) hypertension; G43.709 Chronic migraine without aura, not intractable, without status migrainosus; F17.210 Nicotine dependence, cigarettes, uncomplicated; M32.9 Systemic lupus erythematosus, unspecified; Z79.899 Other long term (current) drug therapy
CPT/HCPCS: 36415; 71046; 80048; 84484; 85025; 85378; 93005; 96365; 96366; 96375; 99284

== ENCOUNTER 2020-01-17 18:29 | Emergency (ER) | payer BC, SELFPAY ==
[2020-01-17 19:22] VITALS: BP 131/69; PULSE 100; RESP 18; TEMP 37.4; O2SAT 98; BMI 30.7
--- NOTE | 2020-01-17 19:30 | HMH.EDUTC ---
[facility] Disposition Clinical Impression: Viral syndrome, Encounter for laboratory testing for COVID-19 virus Disposition: Home, Self-Care Condition on Discharge: Good Instructions: Preventing the Spread of Coronavirus Discharge Instructions, DI for Viral Syndrome Additional Instructions: *Monitor Temp, Over the counter Motrin or Tylenol as directed/as needed Tylenol every 4 hours and Motrin every 6 hours (as long as your family doctor has told you that you can take it) for fever or pain. and straight to ER if unable to lower temp less than 101.0 after medication given *Warm salt water gargles may help to soothe the throat *Throat Lozenges *Warm fluids like tea with honey may help to soothe the throat *Sleep elevated *Humidifier/Vaporizer *Flonase 2 sprays in each nostril daily but be aware that it may take 2-3 days before you notice improvement Your throat swab was sent for culture. Those results are typically sent to your primary care. Be sure to follow up in 2-3 days with your family doctor/primary care physician if no improvement so they can review those result and treat if necessary. If you don?t have a primary care doctor, I recommend you get one but in the mean time, you will have to return to a walk in clinic Follow up IMMEDIATELY for new or worsening symptoms or no Noticeable improvement over the next 48-72 hours. 911 for difficulty breathing or swallowing You was tested for today for COVID19 your test result should be back later this evening, you may call back later this evening to see if your test results are back and the result You was given a handout with instructions for Self Quarantine and Self isolation for while you wait on test results and what to do if they are positive Referrals: Jose Benedict MD [Primary Care Provider] - As needed Forms: Work/School Release Time of Disposition: 19:46 Medical Decision Making - Jason Inquiry Pt receiving controlled substance: No Jason was queried for this patient: No Vital Signs: 01/17/20 19:22 Temperature 99.3 F Temperature Source Oral Pulse Rate [Radial] 100 H Respiratory Rate 18 Blood Pressure [Right Arm] 131/69 Blood Pressure Mean [Right Arm] 89 Blood Pressure Source [Right Arm] Automatic Cuff Blood Pressure Position [Right Arm] Sitting 02 Sat by Pulse Oximetry 98 Oxygen Delivery Method Room Air - Lab Data Lab results reviewed: Yes: I reviewed the patient's lab results. Orders (Tests/Meds): ORDERS Category Date Time Status Covid-19 Nasal PCR ([facility]) Routine Lab 01/17/20 19:26 Ordered [facility] HPI - General Stated complaint: COVID Exposure Time Seen by Provider: 01/17/20 19:30 Mode of Arrival: Ambulatory Source of Information: Patient Limitations: No Limitations Description of Symptoms (Recalled from Triage Doc. by RN): fever, chills pneumonia 3 weeks ago, exposed to covid HEENT Symptoms (Recalled from RN notes): Yes Resp Symptoms (Recalled from RN notes): No Skin Symptoms (Recalled from RN notes): No MS Symptoms (Recalled from RN notes): No Functional Status (Recalled from RN notes): wnl - History of Present Illness Provider Complaint: Patient states that she was seen and treated for pneumonia a couple weeks ago and has been doing better from that but then was exposed to someone who tested positive for COVID and she is caring for her elderly aunt and she is worried she may have COVID States that she has been having body aches, chills, fever and sore throat - Related Data Home Medications Medication Instructions Recorded Confirmed Minocycline HCl [Minocycline HCl 100 mg PO DAILY 11/26/19 12/31/19 100mg Tab*] Previous Rx's Medication Instructions Recorded clonidine HCl 0.2 mg tablet 0.2 mg PO BID 90 Days #180 tab 11/05/19 spironolactone 25 mg tablet 25 mg PO DAILY #90 tab 11/05/19 omeprazole 20 mg capsule,delayed 20 mg PO DAILY #90 cap 11/28/19 release clonazepam 1 mg tablet 1 mg PO TID #90 tab 12/31/19 gabapen
[2020-01-17 19:52] LABS: UTC Strep Screen (Rapid) Negative (Negative)
[2020-01-17 20:05] VITALS: BP 131/69; PULSE 100; RESP 18; TEMP 37.4; O2SAT 98
== END 2020-01-17 20:06 | disposition home or self-care (01) ==
PROVIDERS: Emergency Provider Nurse Practitioner; PCP Emergency Medicine
DX: Z20.828 Contact with and (suspected) exposure to other viral communicable diseases (principal); B34.9 Viral infection, unspecified; J44.9 Chronic obstructive pulmonary disease, unspecified; F41.8 Other specified anxiety disorders; I10 Essential (primary) hypertension; F17.210 Nicotine dependence, cigarettes, uncomplicated; G43.709 Chronic migraine without aura, not intractable, without status migrainosus; F12.10 Cannabis abuse, uncomplicated
CPT/HCPCS: 87880; 99202; U0003

== ENCOUNTER → 2020-02-29 18:29 | Outpatient (CLI) | payer OTHER, SELFPAY ==
[2020-02-29 19:22] LABS: Basophils # 0.1 K/mm3 (0-0.2); Basophils % 0.5 % (0.1-2.0); Eosinophils # 0.2 K/mm3 (0.0-0.4); Eosinophils % 1.9 % (0.1-12.0); Hematocrit 47.4 % (37.0-47.0); Hemoglobin 15.9 g/dL (12.2-16.2); Lymphocytes # 2.7 K/mm3 (0.7-4.5); Lymphocytes % 29.4 % (10-50); Mean Corpuscular HGB Conc 33.6 g/dL (31.8-35.4); Mean Corpuscular Volume 89.4 fl (81-99); Mean Platelet Volume 9.9 fl (7.4-10.4); Monocytes # 0.6 K/mm3 (0.1-1.0); Monocytes % 6.1 % (1.7-9.3); Neutrophils # 5.7 K/mm3 (1.8-7.8); Neutrophils % 62.1 % (37.0-80.0); Platelet Count 269 K/mm3 (142-424); White Blood Count 9.3 K/mm3 (4.8-10.8)
[2020-02-29 19:27] LABS: Alanine Aminotransferase 47 U/L (12-78); Albumin/Globulin Ratio 1.6 (1.1-1.8); Alkaline Phosphatase 80 U/L (38-126); Anion Gap 13.4 mEq/L (5-15); Aspartate Amino Transferase 36 U/L (14-36); Bilirubin,Total 0.6 mg/dl (0.2-1.3); Blood Urea Nitrogen 15 mg/dl (7-17); Calcium 10.1 mg/dl (8.4-10.2); Carbon Dioxide 27 mmol/L (22.0-30.0); Chloride 102 mmol/L (98-107); Estimated Glomerular Filt Rate 94 ml/min (>60); GFR (African American) 114 ML/MIN (>60); Globulin 3.2 g/dL (1.3-3.2); Glucose 118 mg/dl (74-100); Potassium 4.4 mmoL/L (3.5-5.1); Sodium 138 mmol/L (136-145); Total Protein,Serum 8.2 g/dl (6.3-8.2)
[2020-03-04 03:42] LABS: HIV Screen 4th Generation wRfx Non Reactive (Non Reactive); Hep A Ab, IgM Negative (Negative); Hep A Ab, Total Negative (Negative); Hep B Core Ab, Total Negative (Negative)
[2020-03-04 12:38] LABS: Hep B Surface Ab, Qual Non Reactive (.); Hepatitis B Surface Antigen Negative (Negative); Hepatitis C Antibody <0.1 s/co ratio (0.0-0.9)
== END ==
PROVIDERS: Visit Provider Emergency Medicine
DX: R53.83 Other fatigue (principal); Z29.9 Encounter for prophylactic measures, unspecified
CPT/HCPCS: 80053; 85025; 86703; 86704; 86706; 86708; 87340; 87380; G0432

== ENCOUNTER → 2020-06-27 17:06 | Outpatient (CLI) | payer OTHER, SELFPAY ==
[2020-06-27 18:14] LABS: Amphetamine/Metha Screen,Urine Negative ng/ml (<1000)
[2020-06-27 18:15] LABS: Barbiturates Screen,Urine Negative ng/ml (<200); Benzodiazepines Screen,Urine Negative ng/ml (<200)
[2020-06-27 18:16] LABS: Cannabinoid Screen,Urine Positive ng/ml (<50); Cocaine Screen,Urine Negative ng/ml (<300)
[2020-06-27 18:17] LABS: Methadone Screen,Urine Negative ng/ml (<300)
[2020-06-27 18:18] LABS: Opiate Screen,Urine Positive ng/ml (<300); Phencyclidine Screen,Urine Negative ng/ml (<25)
== END ==
PROVIDERS: Visit Provider Emergency Medicine
DX: Z79.899 Other long term (current) drug therapy (principal)
CPT/HCPCS: 80305

== ENCOUNTER 2020-07-17 17:22 | Emergency (ER) | payer OTHER, SELFPAY ==
[2020-07-17 17:22] VITALS: BP 121/82; PULSE 89; RESP 18; TEMP 37.1; O2SAT 98; BMI 31.1
--- NOTE | 2020-07-17 17:51 | HMH.EDUTC ---
[facility] Disposition Clinical Impression: Cough, Encounter for laboratory testing for COVID-19 virus Disposition: Home, Self-Care Condition on Discharge: Good Instructions: Cough, DI for COVID-19 (Suspected or Confirmed ), Coronavirus Disease 2019, Preventing the Spread of Coronavirus Discharge Instructions Additional Instructions: *Monitor Temp, Over the counter Motrin or Tylenol as directed/as needed Tylenol every 4 hours and Motrin every 6 hours (as long as your family doctor has told you that you can take it) for fever or pain. and straight to ER if unable to lower temp less than 101.0 after medication given *Warm salt water gargles may help to soothe the throat *Throat Lozenges *Warm fluids like tea with honey may help to soothe the throat *Sleep elevated *Humidifier/Vaporizer Use inhalers as prescribed Follow up if not improvement Follow up IMMEDIATELY for new or worsening symptoms or no Noticeable improvement over the next 48-72 hours. 911 for difficulty breathing or swallowing You were tested for today for COVID19 your test result should be back in the next 24-48 hours, you may call to the [facility] to see if your test results are back in the next 48 hours [phone] [facility] hours are 9am-9pm You was given a handout with instructions for Self Quarantine and Self isolation for while you wait on test results and what to do if they are positive If you are positive the Health Dept will be contacting you also Referrals: Jose Benedict MD [Primary Care Provider] - As needed Time of Disposition: 18:10 Medical Decision Making - Jason Inquiry Pt receiving controlled substance: No Jason was queried for this patient: No Vital Signs: 07/17/20 17:22 Temperature 98.8 F Temperature Source Oral Pulse Rate [Right] 89 Respiratory Rate 18 Blood Pressure [Right Arm] 121/82 Blood Pressure Mean [Right Arm] 95 02 Sat by Pulse Oximetry 98 Oxygen Delivery Method Room Air Orders (Tests/Meds): ORDERS Category Date Time Status Covid-19 Nasal PCR ([facility]) Routine Lab 07/17/20 17:30 Received [facility] HPI - General Stated complaint: covid test Time Seen by Provider: 07/17/20 17:51 Mode of Arrival: Family Vehicle Source of Information: Patient Limitations: No Limitations Description of Symptoms (Recalled from Triage Doc. by RN): PATIENT C/O COUGH, VOMITTING AND SOME SOA. PT REQUEST A COVID TEST TODAY DURING [facility] TRIAGE. PT REPORTS SHE JUST CAME BACK FROM [place]. HEENT Symptoms (Recalled from RN notes): No Resp Symptoms (Recalled from RN notes): Yes Skin Symptoms (Recalled from RN notes): No MS Symptoms (Recalled from RN notes): No Functional Status (Recalled from RN notes): NA - History of Present Illness Provider Complaint: Patient states that she wanted to get checked for COVID States that she has been having cough, N/V and at times after coughing felt a little SOA but she has asthma anxiety and an everyday smoker and she has been a little anxious worried about COVID since she got home. States that she was worried that she may have COVID due to recently traveling to [place] and wanted to get tested for COVID State that last episode of vomiting was this morning none since and not having any SOA at this time - Related Data Previous Rx's Medication Instructions Recorded omeprazole 20 mg capsule,delayed 20 mg PO DAILY #90 cap 11/28/19 release minocycline 100 mg tablet 100 mg PO DAILY #30 tab 02/25/20 nicotine 21 mg/24 hr daily 1 patch TRANSDERMA DAILY #28 each 02/25/20 transdermal patch bisacodyl 10 mg rectal suppository 10 mg [place] DAILY PRN #12 each 04/25/20 minocycline 100 mg capsule 100 mg PO DAILY #90 cap 04/30/20 spironolactone 25 mg tablet See Rx Instructions .ROUTE 05/20/20 .COMPLEX #90 tab clonidine HCl 0.2 mg tablet See Rx Instructions .ROUTE 06/11/20 .COMPLEX #180 tab aripiprazole 15 mg tablet 15 mg PO QHS #30 tab 06/24/20 prazosin 2 mg capsule 2 mg PO HS #30 cap 06/24/20 clonazepam 1 mg tablet 1 mg PO TID #
[2020-07-17 18:36] VITALS: BP 117/71; PULSE 81; RESP 18; TEMP 37.1; O2SAT 99
== END 2020-07-17 18:10 | disposition home or self-care (01) ==
PROVIDERS: Emergency Provider Nurse Practitioner; PCP Emergency Medicine
DX: Z20.822 Contact with and (suspected) exposure to COVID-19 (principal); R05 Cough; R06.02 Shortness of breath; J44.9 Chronic obstructive pulmonary disease, unspecified; I10 Essential (primary) hypertension
CPT/HCPCS: 99202; G0463; U0003

== ENCOUNTER → 2020-08-27 13:50 | Outpatient (CLI) | payer OTHER, SELFPAY ==
[2020-08-28 19:20] LABS: Benzodiazepines Screen,Urine Negative ng/ml (<200)
[2020-08-28 19:21] LABS: Amphetamine/Metha Screen,Urine Negative ng/ml (<1000); Barbiturates Screen,Urine Negative ng/ml (<200)
[2020-08-28 19:22] LABS: Cannabinoid Screen,Urine Positive ng/ml (<50); Cocaine Screen,Urine Negative ng/ml (<300)
[2020-08-28 19:23] LABS: Methadone Screen,Urine Negative ng/ml (<300)
[2020-08-28 19:24] LABS: Opiate Screen,Urine Negative ng/ml (<300); Phencyclidine Screen,Urine Negative ng/ml (<25)
== END ==
PROVIDERS: Visit Provider Emergency Medicine
DX: F41.9 Anxiety disorder, unspecified (principal); Z79.899 Other long term (current) drug therapy
CPT/HCPCS: 80305

== ENCOUNTER → 2020-10-01 15:39 | Outpatient (CLI) | payer OTHER, SELFPAY ==
[2020-10-01 15:49] LABS: Microscopic, Urine URINE MICROSCOPIC (MICROSCOPIC)
[2020-10-01 16:22] LABS: Basophils # 0.2 K/mm3 (0-0.2); Eosinophils # 0.4 K/mm3 (0.0-0.4); Eosinophils % 2.4 % (0.1-12.0); Hematocrit 42.5 % (37.0-47.0); Hemoglobin 14.9 g/dL (12.2-16.2); Lymphocytes # 3.8 K/mm3 (0.7-4.5); Lymphocytes % 23.7 % (10-50); Mean Corpuscular HGB Conc 35.1 g/dL (31.8-35.4); Mean Corpuscular Hemoglobin 29.7 pg (27.0-31.2); Mean Corpuscular Volume 84.6 fl (81-99); Mean Platelet Volume 8.4 fl (7.4-10.4); Monocytes # 0.8 K/mm3 (0.1-1.0); Monocytes % 5.1 % (1.7-9.3); Neutrophils # 10.8 K/mm3 (1.8-7.8); Neutrophils % 67.8 % (37.0-80.0); Platelet Count 285 K/mm3 (142-424); Red Blood Count 5.03 M/mm3 (4.20-5.40); Red Cell Distribution Width 14.4 % (11.5-17.5); White Blood Count 15.9 K/mm3 (4.8-10.8)
[2020-10-01 16:23] LABS: MANUAL DIFFERENTIAL MANUAL DIFFERENTIAL (MANUAL DIFF)
[2020-10-01 16:28] LABS: Appearance,Urine SL CLOUDY (Clear); Bilirubin,Urine Negative (Negative); Blood, Urine Negative (Negative); Color,Urine DK YELLOW (Yellow); Glucose,Urine (UA) Negative (Negative); Ketones,Urine Negative (Negative); Leukocyte Esterase,Urine Negative (Negative); Nitrate,Urine Negative (Negative); PH,Urine 5.5 (5.0-8.5); Protein,Urine Negative (Negative); Specific Gravity, Urine >= 1.030 (1.005-1.030); Urobilinogen,Urine 0.2 EU/dl (0.2)
[2020-10-01 16:37] LABS: Squamous Epithelial Cell,Urine Occasional #/hpf (0-5); WBC,Urine Occasional #/hpf (0-3)
[2020-10-01 16:38] LABS: RBC,Urine Occasional #/hpf (0-3); Urine Pregnancy, HCG Qual. Negative (Negative)
[2020-10-01 16:51] LABS: Eosinophils % 4 % (0-3); Hypochromasia 1+; Lymphocytes % 38 % (10-50); Monocytes % 8 % (2-9); Neutrophils % 50 % (42-76); Platelet Estimate Normal; Total Cells Counted 100
[2020-10-01 17:19] LABS: Chloride 104 mmol/L (98-107); Sodium 140 mmol/L (136-145)
[2020-10-01 17:20] LABS: Potassium 4.2 mmoL/L (3.5-5.1)
[2020-10-01 17:22] LABS: Alanine Aminotransferase 76 U/L (12-78); Albumin Level 4.8 g/dl (3.5-5.0); Albumin/Globulin Ratio 1.8 (1.1-1.8); Alkaline Phosphatase 91 U/L (38-126); Anion Gap 14.2 mEq/L (5-15); Aspartate Amino Transferase 53 U/L (14-36); Bilirubin,Total 0.5 mg/dl (0.2-1.3); Blood Urea Nitrogen 10 mg/dl (7-17); Calcium 9.3 mg/dl (8.4-10.2); Carbon Dioxide 26 mmol/L (22.0-30.0); Estimated Glomerular Filt Rate 94 ml/min (>60); GFR (African American) 113 ML/MIN (>60); Globulin 2.7 g/dL (1.3-3.2); Glucose 96 mg/dl (74-100); Total Protein,Serum 7.5 g/dl (6.3-8.2)
== END ==
PROVIDERS: Visit Provider Otolaryngology
DX: Z01.818 Encounter for other preprocedural examination (principal); Z20.822 Contact with and (suspected) exposure to COVID-19
CPT/HCPCS: 36415; 80053; 81001; 81025; 85007; 85025; U0003

== ENCOUNTER 2020-10-03 06:42 | Day surgery (SDC) | payer OTHER, SELFPAY ==
[2020-09-24 13:36] VITALS: BMI 30.5
[2020-10-03 07:05] VITALS: BP 100/73; PULSE 78; RESP 20; TEMP 36.7; O2SAT 99
--- NOTE | 2020-10-03 09:10 | HMH.ANESCL ---
[facility] Anesthesia Checklist - Patient Identification Patient Identification: Arm Band - Structural Data Admitted From: Home Planned Operative Procedure/s: Excision neoplasm/lesion forehead Consent for Planned Operative Procedure(s) Verified: Yes Verified Documents: Surgical Consent, History and Physical - NPO Status Verified Time NPO: 00:00 - Additional verifications Anesthesia Reactions: No Hx Blood Transfusions: No Blood Transfusion Reaction: No - Airway Assessment C-Spine Mobility Assessed: Yes TMJ Mobility Assessed: Yes Dentition: Good Dentition - Neurological Assessment Level of Consciousness: Awake, Alert Hx Seizures: Yes - Anesthesia Plan Anesthesia Risk discussed: Yes Anesthesia Plan: Verified ASA Class: III Anesthesia Type: MAC [facility] History Medical History: Reports:: Anxiety, Chronic Obstructive Pulmonary Disease (COPD), Depression, Hypertension, Migraine, Seizures, Valvular Heart Disease Denies:: Cancer, Diabetes Mellitus Type 1, Diabetes Mellitus Type 2, Internal Pacemaker, MRSA *Have you ever received a pneumonia vaccine?: No *Have you received a flu vaccine this season?: No Other Medical History: Reports: Other. Denies: Blood Transfusion Reaction Anesthesia experience/problems:: None Laterality Cases: Right: Arthroscopy Knee, Bilateral: Other Other Surgeries: Yes: Colonoscopy, , Dilation and Curettage, Tubal Ligation, Other. No: Pacemaker Amputation: No Fractures: Yes (RT shoulder,RT wrist and hand,fingers,ribs) - *Social History Last grade of school completed: High school graduate Smoking Status: Current every day smoker Tobacco Type: cigarettes # Packs/Day (cigarettes): 1 Alcohol Intake: never Substance Use Type: marijuana *Occupational Status:: unemployed Housing: apartment Household Members: friend(s) *Travel in the last 8 weeks: None - Psychiatric History Pschychiatric History:: Reports:: Anxiety, Depression Family Hx:: Cancer, Heart Attack, Hypertension, Kidney Disease, Mental illness
--- NOTE | 2020-10-03 09:17 | HMH.OPNOTE ---
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 The lesion on the right forehead was marked out and the eli out measured 3.8 cm in length. The eli out was incised and the lesion was excised and submitted. Bleeding was 5 cc and stopped with bipolar cautery. Anterior and posterior incisions were made and a tissue rearrangement Z-plasty repair was done with interrupted 4-0 nylon sutures after Surgicel snow was placed in the defect. An excellent repair was obtained. A dot dressing was applied and the patient was sent to recovery in good general condition. Condition: stable Disposition: PACU Complications:: none
[2020-10-03 09:58] VITALS: BP 115/70; PULSE 79; RESP 18; TEMP 36.4; O2SAT 96
[2020-10-03 10:13] VITALS: BP 110/78; PULSE 84; RESP 16; O2SAT 97
[2020-10-03 10:28] VITALS: BP 111/67; PULSE 81; RESP 16; O2SAT 97
== END 2020-10-03 10:28 | disposition home or self-care (01) ==
LOC: OR 06:44
PROVIDERS: PCP Emergency Medicine; Visit Provider Otolaryngology
PROC: (CPT 14040; principal; 2020-10-03 08:15)
DX: C44.319 Basal cell carcinoma of skin of other parts of face (principal); I10 Essential (primary) hypertension; J44.9 Chronic obstructive pulmonary disease, unspecified; Z79.899 Other long term (current) drug therapy
CPT/HCPCS: 14040; 96374

== ENCOUNTER 2020-10-06 11:01 | Emergency (ER) | payer OTHER, SELFPAY ==
[2020-10-06 11:02] VITALS: BP 124/85; PULSE 83; RESP 18; TEMP 36.8; O2SAT 99; BMI 32.1
[2020-10-06 11:21] VITALS: PULSE 77; O2SAT 100
[2020-10-06 11:29] VITALS: BP 124/85; PULSE 97; RESP 16; O2SAT 100
[2020-10-06 11:30] VITALS: BP 119/78; PULSE 72; O2SAT 100
--- NOTE | 2020-10-06 11:57 | HMH.EDGENADL ---
ED Disposition Clinical Impression: Periorbital edema of right eye Disposition: Home, Self-Care Condition on Discharge: Good Additional Instructions: Please return to the emergency department if you develop redness or worsening. Also return if you develop a fever or pain. Follow-up with your optometry professor within about 5 days if your symptoms do not improve. Keep your head upright and or at 45 degrees while you are sleeping. Referrals: Jose Benedict MD [Primary Care Provider] - - Critical Care Critical Care Time: No Attestation: On 10/06/20, the high probability of a clinically significant, sudden or life threatening deterioration of the following system(s) required my full and direct attention, intervention and personal management. The time I documented below is in addition to time spent performing reported procedures but includes the following listed in this critical care notation. Medical Decision Making - Medical Records Medical records reviewed: Yes: I reviewed the patient's medical records. - Jason Inquiry Pt receiving controlled substance: No Vital Signs: 10/06/20 11:02 10/06/20 11:21 10/06/20 11:29 Temperature 98.3 F Temperature Source Oral Pulse Rate 77 97 H Pulse Rate [Right] 83 Respiratory Rate 18 16 Blood Pressure 124/85 Blood Pressure [Right Arm] 124/85 Blood Pressure Mean Blood Pressure Mean [Right Arm] 98 Blood Pressure Position Sitting 02 Sat by Pulse Oximetry 99 100 100 Oxygen Delivery Method Room Air Nasal Cannula Oxygen Flow Rate (LPM) 3 10/06/20 11:30 Temperature Temperature Source Pulse Rate 72 Pulse Rate [Right] Respiratory Rate Blood Pressure 119/78 Blood Pressure [Right Arm] Blood Pressure Mean 91 Blood Pressure Mean [Right Arm] Blood Pressure Position 02 Sat by Pulse Oximetry 100 Oxygen Delivery Method Oxygen Flow Rate (LPM) Medical Decision Narrative: The patient presents to the emergency department because she has swelling of her right face after having undergone a mole removal at the optometry professor office 3 days ago. Physical examination shows some edema of the upper and lower eyelid on the right side. The patient's globe is normal-appearing. Normal extraocular motions. There is no erythema or other sign of infection. I suspect that the patient's symptoms are secondary to the skin biopsy associated with infiltration with local anesthetic. I feel that the patient can be safely discharged home with instructions to follow-up with her optometry professor in a few days. I also advised the patient to sleep with her head elevated at about 45 degrees. He has expressed understanding of these instructions and has agreed to return to the emergency department should she develop a fever, redness, increased pain. General Adult HPI - General Chief complaint: Eye Problems Stated complaint: right eye swollen shut Time Seen by Provider: 10/06/20 11:58 Mode of Arrival: Ambulatory Limitations: No Limitations Description of Symptoms (Recalled from ER Triage Doc. by RN): s/p mole removal from right forehead area on tuesday, being checked for melanoma. woke up this morning with swelling to right orbit, spreading to forehead, down cheek & nose. denies fevers. - History of Present Illness HPI narrative: The patient presents to the emergency department complaining of right sided facial swelling after having had a dermatology procedure to her right forehead about 3 days ago. Onset (ago): day(s) (3) Location: head, face - Related Data Home Medications Medication Instructions Recorded Confirmed ARIPiprazole [Aripiprazole] 15 mg PO QHS 09/24/20 10/03/20 Budesonide/Formoterol Fumarate See Rx Instructions .ROUTE .COMPLEX 09/24/20 10/03/20 [Budesonide-Formoterol 80-4.5] Minocycline HCl [Minocin 100mg See Rx Instructions .ROUTE .COMPLEX 09/24/20 10/03/20 capsule] Nicotine [Nicotine Patch 1 patch TRANSDERMA DAILY 09/24/20 10/03/20 21mg/24hrs]
[2020-10-06 12:00] VITALS: BP 113/82; PULSE 71; RESP 14; TEMP 36.7; O2SAT 98
== END 2020-10-06 12:12 | disposition home or self-care (01) ==
PROVIDERS: Emergency Provider Emergency Medicine; PCP Emergency Medicine
DX: H05.221 Edema of right orbit (principal); F41.8 Other specified anxiety disorders; I10 Essential (primary) hypertension; J44.9 Chronic obstructive pulmonary disease, unspecified; Z79.899 Other long term (current) drug therapy
CPT/HCPCS: 99281; 99282

== ENCOUNTER 2020-10-08 12:58 | Emergency (ER) | payer OTHER, SELFPAY ==
[2020-10-08 12:59] VITALS: BP 124/89; PULSE 85; RESP 16; TEMP 36.8; O2SAT 98; BMI 32.0
[2020-10-08 13:47] VITALS: BP 117/80; PULSE 78; RESP 20; O2SAT 99
[2020-10-08 14:03] VITALS: BP 107/67; PULSE 86; RESP 14; TEMP 36.8; O2SAT 99
--- NOTE | 2020-10-08 16:51 | HMH.EDGENADL ---
ED Disposition Clinical Impression: Encounter for wound re-check Cellulitis Qualifiers: Site of cellulitis: face Qualified Code(s): L03.211 - Cellulitis of face Disposition: Home, Self-Care Condition on Discharge: Good Prescriptions: Sulfamethoxazole/Trimethoprim [Bactrim DS tablet] 1 each PO BID 7 Days #14 tab Transmission Status: Received by [facility] [employer] [facility] Ondansetron [Zofran 4mg ODT] 4 mg PO TIDP PRN #9 tab PRN Reason: Nausea Transmission Status: Received by [facility] Referrals: Jose Benedict MD [Primary Care Provider] - - Critical Care Critical Care Time: No Attestation: On 10/08/20, the high probability of a clinically significant, sudden or life threatening deterioration of the following system(s) required my full and direct attention, intervention and personal management. The time I documented below is in addition to time spent performing reported procedures but includes the following listed in this critical care notation. Medical Decision Making - Jason Inquiry Pt receiving controlled substance: No Vital Signs: 10/08/20 12:59 10/08/20 13:47 10/08/20 14:03 Temperature 98.2 F 98.2 F Temperature Source Oral Oral Pulse Rate 78 86 Pulse Rate [Radial] 85 Respiratory Rate 16 20 14 Blood Pressure 117/80 107/67 L Blood Pressure [Right Arm] 124/89 Blood Pressure Mean [Right Arm] 100 Blood Pressure Source Automatic Cuff Blood Pressure Position Sitting Blood Pressure Position [Right Arm] Sitting 02 Sat by Pulse Oximetry 98 99 Oxygen Delivery Method Room Air Room Air Room Air Orders (Tests/Meds): ED MEDICATIONS Discontinued Medications Generic Name Dose Route Start Last Admin Trade Name Freq PRN Reason Stop Dose Admin Ondansetron HCl 4 mg 10/08/20 13:51 10/08/20 13:59 Ondansetron 4mg Odt SL 10/08/20 13:52 4 mg ONCE ONE Administration Trimethoprim/Sulfamethoxazole 1 each 10/08/20 13:50 10/08/20 13:59 Sulfa/Trimethoprim 1 Tablet PO 10/08/20 13:51 1 each ONCE ONE Administration Protocol Medical Decision Narrative: The patient is a 40 year old female who presents to the ED with concern for wound infection. On arrival she is awake, alert, hemodynamically stable. She has a wound with stitches intact with some overlying scab. She has no surrounding erythema but she does have some purulent drainage and dependent swelling to the right eyelid (no sign of periorbital cellulitis like warmth, pain to the eye, etc). She likely has superficial wound infection without abscess. Will treat with bactrim and have her follow up. General Adult HPI - General Chief complaint: Recheck/Abnormal Lab/Rx Stated complaint: procedure on forhead infeted Time Seen by Provider: 10/08/20 13:10 Mode of Arrival: Ambulatory Limitations: No Limitations Description of Symptoms (Recalled from ER Triage Doc. by RN): TO ED PER [facility] [facility] PT WITH C/O POSSIBLE INFECTION TO FOREHEAD STATES HAD A MOLE REMOVED 3 DAYS AGO AND NOW HAS SOME DRAINAGE FROM AREA. - History of Present Illness HPI narrative: The patient is a 40 year old female who presents with concern for wound infection. The patient had a mole removed on her forehead a few days ago for biopsy. For the last few days she has had pain, redness, swelling, and purulent drainage from the area. She also noticed some swelling around her eye. Denies fever, nausea, vomiting or any other symptoms. - Related Data Home Medications Medication Instructions Recorded Confirmed ARIPiprazole [Aripiprazole] 15 mg PO QHS 09/24/20 10/03/20 Budesonide/Formoterol Fumarate See Rx Instructions .ROUTE .COMPLEX 09/24/20 10/03/20 [Budesonide-Formoterol 80-4.5] Minocycline HCl [Minocin 100mg See Rx Instructions .ROUTE .COMPLEX 09/24/20 10/03/20 capsule] Nicotine [Nicotine Patch 1 patch TRANSDERMA DAILY 09/24/20 10/03/20 21mg/24hrs] Omeprazole 20 mg PO DAILY 09/24/20 10/03/20 Spironolactone [Spironolactone S
== END 2020-10-08 14:05 | disposition home or self-care (01) ==
PROVIDERS: Emergency Provider Emergency Medicine; PCP Emergency Medicine
DX: L03.211 Cellulitis of face (principal); F41.8 Other specified anxiety disorders; J44.9 Chronic obstructive pulmonary disease, unspecified; F17.210 Nicotine dependence, cigarettes, uncomplicated; Z88.1 Allergy status to other antibiotic agents
CPT/HCPCS: 99281

== ENCOUNTER → 2020-10-21 18:25 | Outpatient (CLI) | payer OTHER, SELFPAY ==
[2020-10-21 19:19] LABS: Amphetamine/Metha Screen,Urine Negative ng/ml (<1000); Barbiturates Screen,Urine Negative ng/ml (<200)
[2020-10-21 19:20] LABS: Benzodiazepines Screen,Urine Positive ng/ml (<200)
[2020-10-21 19:21] LABS: Cannabinoid Screen,Urine Positive ng/ml (<50); Cocaine Screen,Urine Negative ng/ml (<300)
[2020-10-21 19:22] LABS: Methadone Screen,Urine Negative ng/ml (<300); Opiate Screen,Urine Positive ng/ml (<300)
[2020-10-21 19:23] LABS: Phencyclidine Screen,Urine Negative ng/ml (<25)
== END ==
PROVIDERS: Visit Provider Emergency Medicine
DX: Z79.899 Other long term (current) drug therapy (principal)
CPT/HCPCS: 80305

== ENCOUNTER → 2020-11-05 14:29 | Outpatient (CLI) | payer OTHER, SELFPAY ==
--- NOTE | 2020-11-05 14:30 | CA_ITS ---
APPROVED REPORT EXAM: Comprehensive 2D, Doppler, and color-flow Echocardiogram Top Lift Nailer: Yumiko Alonso RDCS Ht: 5 ft 2 in Wt: 172lbs BSA: 1.79 BP: 118/78 mmHg Indications: murmur Echo Enhancing Agent Comments: MURMUR 2D Dimensions LVOT 1.91 cm (M/F) 1.5-2.5 M-Mode Dimensions RVDd 2.08 cm (0.9-2.6) LA Diam 3.70 cm (1.9-4.0) LVDd 4.75 cm (3.5-5.7) Ao Diam 2.56 cm (2.0-3.7) LVDs 3.17 cm (3.5-5.7) IVSd 0.59 cm (0.6-1.1) PWd 0.72 cm (0.6-1.1) EF (Teich) 61.90% FS 33.30% EDV (Teich) 104.90 mL TAPSE 2.17 (<1.7) ESV (Teich) 40.00 mL LV Diastology E Decel Time 140.00 (160-240 msec) E/A Ratio 1.1 MED E' 6.90 (< 7 cm/sec) E'/MED E' Ratio 10.94 (>14) LAT E' 12.80 (<10 cm/sec) E/LAT E' Ratio 5.90 (>14) Mitral Valve MV E Max Jorge. 76.00 (40-130 cm/s) MV A Velocity 69.00 (40-130 cm/s) E/A Ratio 1.09 MV Decel. Time 140.00 (160-240 ms) MV PHT 41.00 ms Left Ventricle Left atrium is normal size, left ventricle is normal size, visually estimated ejection fraction 55% with no regional wall motion abnormality. Diastolic parameters are within normal range. Right Ventricle Right atrium and right ventricle are normal size and contractility. Aortic Valve Aortic valve is grossly normal, there is no aortic stenosis or aortic insufficiency. Mitral Valve Mitral valve grossly normal, there is trace mitral regurgitation. Tricuspid Valve Tricuspid grossly normal, there is trace tricuspid regurgitation, tricuspid regurgitation jet velocity is inadequate for calculation of the right ventricular systolic pressure. Pulmonic Valve Pulmonic valve is poorly visualized. Great Vessels Aortic root is normal size. Pericardium No significant pericardial effusion noted. Conclusion 1. Normal left ventricular size, preserved left ventricular systolic function, visually estimated ejection fraction 55% with no regional wall motion abnormality, diastolic parameters are within normal range. 2. Trace mitral and tricuspid regurgitation. 3. No significant pericardial effusion noted. Electronically signed by : Alan Jacobs MD 11/06/2020 16:10:06
== END ==
PROVIDERS: PCP Emergency Medicine; Visit Provider Emergency Medicine
DX: R01.1 Cardiac murmur, unspecified (principal)
CPT/HCPCS: 93225; 93226; 93306

== ENCOUNTER → 2020-12-16 18:44 | Outpatient (CLI) | payer OTHER, SELFPAY ==
[2020-12-16 20:14] LABS: Amphetamine/Metha Screen,Urine Negative ng/ml (<1000)
[2020-12-16 20:15] LABS: Barbiturates Screen,Urine Negative ng/ml (<200)
[2020-12-16 20:16] LABS: Benzodiazepines Screen,Urine Negative ng/ml (<200)
[2020-12-16 20:17] LABS: Cannabinoid Screen,Urine Positive ng/ml (<50); Cocaine Screen,Urine Negative ng/ml (<300)
[2020-12-16 20:18] LABS: Methadone Screen,Urine Negative ng/ml (<300)
[2020-12-16 20:19] LABS: Opiate Screen,Urine Negative ng/ml (<300); Phencyclidine Screen,Urine Negative ng/ml (<25)
== END ==
PROVIDERS: Visit Provider Emergency Medicine
DX: Z79.899 Other long term (current) drug therapy (principal)
CPT/HCPCS: 80305

== ENCOUNTER → 2021-02-13 18:16 | Outpatient (CLI) | payer OTHER, SELFPAY ==
[2021-02-13 21:42] LABS: Amphetamine/Metha Screen,Urine Negative ng/ml (<1000)
[2021-02-13 21:43] LABS: Barbiturates Screen,Urine Negative ng/ml (<200)
[2021-02-13 21:44] LABS: Benzodiazepines Screen,Urine Negative ng/ml (<200); Cannabinoid Screen,Urine Negative ng/ml (<50)
[2021-02-13 21:45] LABS: Cocaine Screen,Urine Negative ng/ml (<300)
[2021-02-13 21:46] LABS: Methadone Screen,Urine Negative ng/ml (<300); Opiate Screen,Urine Negative ng/ml (<300)
[2021-02-13 21:47] LABS: Phencyclidine Screen,Urine Negative ng/ml (<25)
== END ==
PROVIDERS: Visit Provider Emergency Medicine
DX: G89.29 Other chronic pain; M54.50 Low back pain, unspecified
CPT/HCPCS: 80305